=== PATIENT | female | born 1980 | race Caucasian/White ===

== ENCOUNTER 2016-10-28 09:43 | Inpatient (IN) | payer MEDICAID ==
[2016-10-28] VITALS (7 sets, daily range): BP systolic 100–130; BP diastolic 53–83; PULSE 66–126; RESP 18–20; TEMP 97.6–99; O2SAT 97–100
[~2016-10-28] VITALS: Ht 154.9 cm; Wt 59.3 kg
[~2016-10-28 09:43] MED LIST: BACT800T5 PO; FLUT1SPR9 EACH NARE; NAPR500 PO
--- NOTE | 2016-10-28 10:06 | PD ---
HPI Chief Complaint: Abdominal Pain Time Seen by Provider: 10:06 Travel History International Travel<30 days: No Contact w/Intl Traveler<30days: No Traveled to known affect area: No History of Present Illness HPI 36-year-old female came to the emergency room with history of abdominal pain, generalized body aches. Patient says that abdominal pain has been going on for past 2 weeks. In fact she was seen at [facility] emergency room about 3-4 days ago. She had blood test and CAT scan done there. She was discharged home with medications. She showed me the list of medications which included Zofran, Bentyl, clindamycin and tramadol. Patient says she finished all the medication but for past 3 days she started getting generalized body ache and today had a temperature 103.5. She put some cool washcloth before coming to the ER. She was afebrile in the emergency room but tachycardic. She said her pain is in both hips, in her "kidney areas"and headache. She has been coughing and patient is a smoker. [facility] Past Medical History Narrative Medical List of her past medical, surgical, social and family history was reviewed from the nursing note. Hx Anticoagulant Therapy: No Cancer: No Cardiovascular Problems: No Chemotherapy: No Cerebrovascular Accident: No Diabetes: No Diminished Hearing: No Glaucoma: No Hepatitis: No Hiatal Hernia: No Hypertension: No Respiratory: No Thyroid Disease: No ?: Unknown LMP: ABOUT 3 WEEKS AGO : 4 Para: 2 Miscarriage: 1 : 0 Tubal Ligation: Yes Past Surgical History Abdominal Surgery: No Cardiac Surgery: No Ear Surgery: No Endocrine Surgery: No Eye Surgery: No Genitourinary Surgery: No Gynecologic Surgery: Yes (COLPOSCOPY) Neurologic Surgery: No Oral Surgery: Yes (WISDOM TEETH) Pacemaker: No Thoracic Surgery: No Other Surgery: Yes Social History Alcohol Use: Yes (OCCASIONAL) Tobacco Use: Yes (1 PPD) Substance Use: No Allergies-Medications (Allergen,Severity, Reaction): Coded Allergies: Amoxicillin (Verified Allergy, Severe, HIVES, 10/28/16) Codeine (Verified Allergy, Severe, HIVES, 10/28/16) Penicillin (Verified Allergy, Severe, HIVES, 10/28/16) Comments List of her allergies reviewed from the nursing note. Reported Meds & Prescriptions Reported Meds & Active Scripts Active Narrative Medication List of her home medications reviewed from the nursing note. Review of Systems Except as stated in HPI: all other systems reviewed are Neg Physical Exam Narrative GENERAL: Awake, alert, anxious, moderate distress SKIN: Focused skin assessment warm/dry. HEAD: Atraumatic. Normocephalic. EYES: Pupils equal and round. No scleral icterus. No injection or drainage. ENT: No nasal bleeding or discharge. Dry mucous membrane, angular cheilosis NECK: Trachea midline. No JVD. CARDIOVASCULAR: Regular rate and rhythm. Tachycardia. No murmur appreciated. RESPIRATORY: No accessory muscle use. Fine crackles in the left base GASTROINTESTINAL: Abdomen soft, non-tender, nondistended. Hepatic and splenic margins not palpable. MUSCULOSKELETAL: No obvious deformities. No clubbing. No cyanosis. No edema. NEUROLOGICAL: Awake and alert. No obvious cranial nerve deficits. Motor grossly within normal limits. Normal speech. PSYCHIATRIC: Appropriate mood and affect; insight and judgment normal. Data Data Last Documented VS Vital Signs Date Time Temp Pulse Resp B/P Pulse Ox O2 Delivery O2 Flow Rate FiO2 10/28/16 11:06 18 100 Room Air 10/28/16 10:21 98 113/61 10/28/16 09:44 99.0 Orders Complete Blood Count With Diff (10/28/16 10:35) Comprehensive Metabolic Panel (10/28/16 10:35) Lipase (10/28/16 10:35) Urinalysis - C+S If Indicated (10/28/16 10:35) Iv Access Insert/Monitor (10/28/16 10:35) Ecg Monitoring (10/28/16 10:35) Oximetry (10/28/16 10:35) Sodium Chlor 0.9% 1000 Ml Inj (Ns 1000 M (10/28/16 10:35) Sodium Chloride 0.9% Flush (Ns Flush) (10/28/16 10:45) Influenzae A/B Antigen (10/28/16 10:35) Ondansetron Inj (Zofran Inj) (10/28/16 10:45) Ed Urine Pregnancytest Poc (10/28/16 10:35) Chest, Single Ap (10/28/16 ) Ketorolac Inj (Toradol Inj) (10/28/16 11:15) Urine Culture (10/28/16 10:50) Lactic Acid (10/28/16 11:32) Blood Culture (10/28/16 11:32) Ceftriaxone Inj (Rocephin Inj) (10/28/16 11:45) Sodium Chlor 0.9% 1000 Ml Inj (Ns 1000 M (10/28/16 11:45) Admit Order (Ed Use Only) (10/28/16 11:50) Labs Laboratory Tests Test 10/28/16 10/28/16 10:50 11:49 Sodium Level 134 MEQ/L Potassium Level 4.2 MEQ/L Chloride Level 106 MEQ/L Carbon Dioxide Level 20.7 MEQ/L Anion Gap 7 MEQ/L Blood Urea Nitrogen 21 MG/DL Creatinine 1.43 MG/DL Estimat Glomerular Filtration 41 ML/MIN Rate Random Glucose 93 MG/DL Calcium Level 9.6 MG/DL Total Bilirubin 1.0 MG/DL Aspartate Amino Transf 25 U/L (AST/SGOT) Alanine Aminotransferase 20 U/L (ALT/SGPT) Alkaline Phosphatase 147 U/L Troponin I LESS THAN 0.02 NG/ML Total Protein 7.1 GM/DL Albumin 3.0 GM/DL Lipase 84 U/L White Blood Count 18.8 TH/MM3 Red Blood Count 3.83 MIL/MM3 Hemoglobin 12.3 GM/DL Hematocrit 37.3 % Mean Corpuscular Volume 97.3 FL Mean Corpuscular Hemoglobin 32.1 PG Mean Corpuscular Hemoglobin 33.0 % Concent Red Cell Distribution Width 12.9 % Platelet Count 123 TH/MM3 Mean Platelet Volume 9.9 FL Neutrophils (%) (Auto) 91.8 % Lymphocytes (%) (Auto) 2.4 % Monocytes (%) (Auto) 5.3 % Eosinophils (%) (Auto) 0.4 % Basophils (%) (Auto) 0.1 % Neutrophils # (Auto) 17.3 TH/MM3 Lymphocytes # (Auto) 0.5 TH/MM3 Monocytes # (Auto) 1.0 TH/MM3 Eosinophils # (Auto) 0.1 TH/MM3 Basophils # (Auto) 0.0 TH/MM3 CBC Comment DIFF FINAL Differential Comment Urine Color YELLOW Urine Turbidity HAZY Urine pH 7.0 Urine Specific [place] 1.014 Urine Protein 100 mg/dL Urine Glucose (UA) NEG mg/dL Urine Ketones NEG mg/dL Urine Occult Blood MOD Urine Nitrite POS Urine Bilirubin NEG Urine Urobilinogen LESS THAN 2.0 MG/DL Urine Leukocyte Esterase LARGE Urine RBC 7 /hpf Urine WBC /hpf Urine WBC Clumps FEW Urine Squamous Epithelial 7 /hpf Cells Urine Transitional Epithelial <1 /hpf Cells Urine Amorphous Sediment RARE Urine Bacteria RARE /hpf Urine Mucus FEW /lpf Microscopic Urinalysis Comment CULTURE INDICATED Lactic Acid Level 0.5 mmol/L MDM Medical Decision Making Medical Screen Exam Complete: Yes Emergency Medical Condition: Yes Medical Record Reviewed: Yes Differential Diagnosis UTI, influenza, viral illness, dehydration, left right abnormality Narrative Course 11:02 AM awaiting for the blood test, chest x-ray and urine analysis. Ordered influenza and ordered IV hydration for bolus. 11:33 AM her blood test result came back and patient has significant leukocytosis with a left shift. UA is grossly positive for UTI. At this point given her symptoms and complain the diagnosis would be pyelonephritis. I've ordered another liter of IV fluid and IV Rocephin. I would like to admit the patient. Awaiting for the chemistry. I have added lactic acid and blood culture as well Procedures EKG Prior to Arrival: No Diagnosis Primary Impression: Pyelonephritis Additional Impression: Dehydration Admitting Information Admitting Physician Requests: Admit Scripts Ciprofloxacin 500 Mg [id number] Mg PO BID #20 TAB Ref 0 Prov:Jerome Patrick MD R1 10/31/16 [id number] 50-325-40 Mg Tab1 Tab PO Q8H PRN (HEADACHE) # 21 TAB Prov:Jerome Patrick MD R1 10/31/16 Soren Alvarado MD Oct 28, 2016 10:06
[2016-10-28] MEDS ORDERED: SODIUM CHLOR 0.9% 1000 ML INJ 1,000 ML IV SCH (10:35)
[2016-10-28] MEDS ORDERED: ONDANSETRON HCL 4 MG/2 ML VIAL IV PUSH ONE (10:45)
[2016-10-28] MEDS ORDERED: SODIUM CHLORIDE 0.9% FLUSH 10 ML FLUSH IV FLUSH PRN ×2 (10:45→14:15)
[2016-10-28 11:14] LABS: AUTOMATED NEUTROPHIL # 17.3 TH/MM3 (1.8-7.7); BASOPHIL % 0.1 % (0.0-2.0); EOSINOPHIL # 0.1 TH/MM3 (0-0.4); EOSINOPHIL % 0.4 % (0.0-4.0); HEMATOCRIT 37.3 % (35.0-46.0); HEMO FLAGS DIFF FINAL; LYMPH % 2.4 % (9.0-44.0); LYMPHOCYTE # 0.5 TH/MM3 (1.0-4.8); MEAN CELL VOLUME 97.3 FL (80.0-100.0); MEAN CORPUSCULAR HEMOGLOBIN 32.1 PG (27.0-34.0); MONO % 5.3 % (0.0-8.0); NEUT % 91.8 % (16.0-70.0); PLATELET COUNT 123 TH/MM3 (150-450); RED BLOOD COUNT 3.83 MIL/MM3 (4.00-5.30); RED CELL DISTRIBUTION WIDTH 12.9 % (11.6-17.2); WHITE BLOOD COUNT 18.8 TH/MM3 (4.0-11.0)
[2016-10-28] MEDS ORDERED: KETOROLAC TROMETHAMINE 30 MG/ML (IVP) VIAL IV PUSH ONE (11:15)
--- NOTE | 2016-10-28 11:24 | RADRPT ---
EXAM DATE/TIME: 10/28/2016 10:41 [facility] COMPARISON: No previous studies available for comparison. INDICATIONS : Fever, vomiting, cough, and body aches for three days. MEDICAL HISTORY : None. SURGICAL HISTORY : Tubal ligation. ENCOUNTER: Initial ACUITY: 3 days PAIN SCORE: 4/10 LOCATION: Chest. FINDINGS: A single view of the chest demonstrates the lungs to be symmetrically aerated without evidence of mas s, infiltrate or effusion. The cardiomediastinal contours are unremarkable. Osseous structures are intact. CONCLUSION: No acute disease. Dyan Bueno MD on October 28, 2016 at 11:21 Board Certified Radiologist. This report was verified electronically.
[2016-10-28 11:29] LABS: BACTERIA, URINE RARE /hpf; BLOOD, URINE MOD (NEG); GLUCOSE,URINE NEG (NEG); KETONE, URINE NEG (NEG); MUCUS URINE FEW /lpf (OCC); NITRITE,URINE POS (NEG); SQUAMOUS EPITHELIAL CELL URINE 7 /hpf (0-5); TRANSITIONAL EPI CELLS, URINE <1 /hpf; URINE COLOR YELLOW (YELLW/STRAW)
[2016-10-28 11:30] LABS: COMMENT (UR) CULTURE INDICATED; CULTURE IF INDICATED CULTURE INDICATED
[2016-10-28 11:34] LABS: ANION GAP 7 MEQ/L (5-15); AST (GOT) 25 U/L (15-37); BICARBONATE 20.7 MEQ/L (21.0-32.0); BLOOD UREA NITROGEN 21 MG/DL (7-18); CHLORIDE 106 MEQ/L (98-107); GLOMERULAR FILTRATION RATE 41 ML/MIN (>89); POTASSIUM 4.2 MEQ/L (3.5-5.1); SODIUM (NA) 134 MEQ/L (136-145)
[2016-10-28 11:37] LABS: ALKALINE PHOSPHATASE 147 U/L (45-117); ALT (GPT) 20 U/L (10-53)
[2016-10-28] MEDS ORDERED: SODIUM CHLOR 0.9% 1000 ML INJ 1,000 ML IV ONE (11:45)
[2016-10-28] MEDS ORDERED: cefTRIAXone INJ 1,000 MG in SODIUM CHLORIDE 0.9% INJ 100 ML IV ONE (11:45)
--- NOTE | 2016-10-28 12:00 | HHI.HP ---
HPI Service Family Medicine Primary Care Physician Unknown Admission Diagnosis pyelonephritis, dehydration Diagnoses: International Travel<30 Days: No Contact w/Intl Traveler<30days: No Known Affected Area: No History of Present Illness Mrs. Larson is a 36-year-old female with no significant past medical history presents to the ED with nausea, vomiting, fever, and dysuria. She states that over the past 2 weeks she has had ABD pain and chills without fever, NVD, or dysuria. She was evaluated at [facility] days ago. She reports that she had blood testing and a CT scan done that were both negative per patient. She was discharged home with Zofran, Bentyl, Clindamycin, and Tramadol. She completed these medications as prescribed, but she reports no improvement. For the last 3 days she started experiencing nausea with body aches. Over the last 24 hours she has had dysuria with a strong urine smell and a fever of 103.1 orally this morning. She had one episode of non-bilious, non- bloody vomiting this morning. Her ABD pain has not subsided and is now localized to the lower back, especially on the L side. She scores the pain a 10/ 10 with a throbbing like quality. Nothing has improved her pain including using Tramadol and Tylenol as prescribed. She reports some chest pain over this time frame, but has a cough at baseline per patient likely related to her smoking history. (Jerome Patrick MD R1) Review of Systems Constitutional: COMPLAINS OF: Fever, Chills Endocrine: COMPLAINS OF: Polyuria Eyes: DENIES: Blurred vision Ears, nose, mouth, throat: COMPLAINS OF: Throat pain (Mild), DENIES: Running Nose Respiratory: COMPLAINS OF: Cough, DENIES: Shortness of breath Cardiovascular: COMPLAINS OF: Chest pain (Over last 24 hours), DENIES: Palpitations Gastrointestinal: COMPLAINS OF: Nausea, Vomiting, DENIES: Diarrhea Genitourinary: COMPLAINS OF: Dysuria Musculoskeletal: COMPLAINS OF: Back pain Integumentary: DENIES: Rash Hematologic/lymphatic: DENIES: Lymphadenopathy Immunologic/allergic: DENIES: Urticaria Neurologic: COMPLAINS OF: Headache Psychiatric: DENIES: Mood changes (Jerome Patrick MD R1) Past Family Social History Past Medical History Denies significant PMHx OBGYN: -1 miscarriage -Tubal ligation Past Surgical History Colposcopy [place] teeth extraction Tubal ligation (Jerome Patrick MD R1) Allergies: Coded Allergies: Amoxicillin (Verified Allergy, Severe, HIVES, 10/28/16) Codeine (Verified Allergy, Severe, HIVES, 10/28/16) Penicillin (Verified Allergy, Severe, HIVES, 10/28/16) Family History Denies FMHx Social History Alcohol - Occasional, weekends a couple of drinks Smoking - 1ppd for 22yr Illicit - Denies Lives at home in [place] with her 3 children. (Jerome Patrick MD R1) Physical Exam Vital Signs Vital Signs Date Time Temp Pulse Resp B/P Pulse Ox O2 Delivery O2 Flow Rate FiO2 10/28/16 11:06 18 100 Room Air 10/28/16 10:21 98 18 113/61 99 Room Air 10/28/16 10:21 18 10/28/16 09:44 99.0 126 20 130/74 99 Room Air Physical Exam GENERAL: Well-nourished, well-developed patient 36 y/o lying in bed in mild distress from pain. SKIN: Warm and dry. No rash. HEENT: Atraumatic, normocephalic with EOMI. PERRLA. Oropharynx clear with no exudates or erythema. No rhinorrhea. MMM with uvula midline. No palpable LAD. No meningeal signs. CARDIOVASCULAR: Regular rate and rhythm without obvious murmurs, gallops, or rubs. RESPIRATORY: Clear to auscultation BL with no CRW. No increased work of breathing. GASTROINTESTINAL: Abdomen soft, nondistended with +BS. No masses appreciated. Patient mildly tender to moderate palpation. No rebound tenderness. Mild tenderness at McBurney's point. MUSCULOSKELETAL: No cyanosis or edema. Strength grossly WNL. BACK: Mild CVA tenderness BL, worsened on the L side. NEURO/PSYCH: Afocal. Awake, alert, and oriented x3. No gross abnormalities. Laboratory Laboratory Tests Test 10/28/16 10:50 White Blood Count 18.8 Red Blood Count 3.83 Hemoglobin 12.3 Hematocrit 37.3 Mean Corpuscular Volume 97.3 Mean Corpuscular Hemoglobin 32.1 Mean Corpuscular Hemoglobin 33.0 Concent Red Cell Distribution Width 12.9 Platelet Count 123 Mean Platelet Volume 9.9 Neutrophils (%) (Auto) 91.8 Lymphocytes (%) (Auto) 2.4 Monocytes (%) (Auto) 5.3 Eosinophils (%) (Auto) 0.4 Basophils (%) (Auto) 0.1 Neutrophils # (Auto) 17.3 Lymphocytes # (Auto) 0.5 Monocytes # (Auto) 1.0 Eosinophils # (Auto) 0.1 Basophils # (Auto) 0.0 CBC Comment DIFF FINAL Differential Comment Urine Color YELLOW Urine Turbidity HAZY Urine pH 7.0 Urine Specific [place] 1.014 Urine Protein 100 Urine Glucose (UA) NEG Urine Ketones NEG Urine Occult Blood MOD Urine Nitrite POS Urine Bilirubin NEG Urine Urobilinogen LESS THAN 2.0 Urine Leukocyte Esterase LARGE Urine RBC 7 Urine WBC Urine WBC Clumps FEW Urine Squamous Epithelial 7 Cells Urine Transitional Epithelial <1 Cells Urine Amorphous Sediment RARE Urine Bacteria RARE Urine Mucus FEW Microscopic Urinalysis Comment CULTURE INDICATED Sodium Level 134 Potassium Level 4.2 Chloride Level 106 Carbon Dioxide Level 20.7 Anion Gap 7 Blood Urea Nitrogen 21 Creatinine 1.43 Estimat Glomerular Filtration 41 Rate Random Glucose 93 Calcium Level 9.6 Total Bilirubin 1.0 Aspartate Amino Transf 25 (AST/SGOT) Alanine Aminotransferase 20 (ALT/SGPT) Alkaline Phosphatase 147 Total Protein 7.1 Albumin 3.0 Lipase 84 Date/Time Procedure Status Source Growth 10/28/16 10:52 Influenza Types A,B Antigen (EFRAIN) - Final Complete Nasal Aspirate NEGATIVE FOR FLU A AND B ANTIGEN.... 10/28/16 10:50 Urine Culture Received Urine Clean Catch Pending (Jerome Patrick MD R1) Result Diagram: 10/28/16 1050 10/28/16 1050 Imaging Last 72 hours Impressions Chest X-Ray 10/28/16 0000 Signed Impressions: Service Date/Time: Friday, October 28, 2016 10:41 - CONCLUSION: No acute disease. Dyan Bueno MD (Jerome Patrick MD R1) Assessment and Plan Assessment and Plan Mrs. Larson is a 36-year-old female with no significant past medical history presents to the ED with nausea, vomiting, fever, and dysuria secondary to pyelonephritis. She will be admitted for IV ABX. Code Status FULL Discussed Condition With Dr. Alvarado, ER Physician Dr. Yesy Ingram (Jerome Patrick MD R1) Attending Attestation Patient seen and examined. Case reviewed and discussed with the resident team. Agree with plan of care as discussed with me and documented in the resident note. pt seen in her room on admission (Zeenat Borja MD) Problem List: (1) Pyelonephritis Status: Acute Plan: Patient presenting with 3 days of fever up to 103, CVA tenderness, dysuria, foul-smelling urine, and nausea with vomiting secondary to pyelonephritis. She will be admitted for IV antibiotics, hydration, and pain control. Prior CT at [facility] negative per patient. CBC: WBC 18.8 with 91.8% neutrophils, H/H4.3/37.3, platelets 123 CMP: Sodium 134, BUN 21, creatinine 1.43, alkaline phosphatase 147 UA: Hazy, 100 protein, moderate occult blood, positive nitrites, large leukocyte esterase, few white blood cell clumps, rare bacteria Blood cultures 2: Pending Urine culture: Pending Imaging: Renal ultrasound: Pending Medications: Rocephin 1 g daily Toradol 30 mg every 6 hours when necessary for pain (Stop Date 11/04) Morphine 2 mg IV given once Normal saline at 100 mL per hour (2) Dehydration Status: Acute Plan: Please see plan as above (3) Nutrition, metabolism, and development symptoms Status: Acute Plan: Fluids: Normal saline at 100 mL per hour Diet: Regular as tolerated Electrolytes: Sodium 134, continue to monitor DVT prophylaxis: Heparin 5000 units twice a day Prophylaxis: Zofran 4 mg IV every 6 hours when necessary for nausea or vomiting , Tylenol 650 mg every 6 hours when necessary for fever, calcium carbonate 500 mg every 2 hours when necessary for reflux, hydroxyzine 25 mg daily at bedtime when necessary for insomnia, DuoNeb's every 6 hours when necessary for shortness of breath or wheezing (Jerome Patrick MD R1) Physician Certification 2 Midnight Certification Type: Admission for Inpatient Services Order for Inpatient Services The services are ordered in accordance with Medicare regulations or non- Medicare payer requirements, as applicable. In the case of services not specified as inpatient-only, they are appropriately provided as inpatient services in accordance with the 2-midnight benchmark. Estimated LOS (days): 3 3 days is the estimated time the patient will need to remain in the hospital, assuming treatment plan goals are met and no additional complications. Post-Hospital Plan: Home (Jerome Patrick MD R1) Jerome Patrick MD R1 Oct 28, 2016 12:00 Zeenat Borja MD Oct 29, 2016 15:00
[2016-10-28] MEDS ORDERED: ACETAMINOPHEN 325 MG TAB PO ONE (12:15)
[2016-10-28] MEDS: SODIUM CHLOR 0.9% 1000 ML INJ 1,000 ML IV SCH ×2 (14:09→22:45)
[2016-10-28] MEDS ORDERED: ONDANSETRON HCL 4 MG/2 ML VIAL IV PRN (14:15)
[2016-10-28] MEDS ORDERED: ACETAMINOPHEN 325 MG TAB PO PRN (14:15)
[2016-10-28] MEDS: SODIUM CHLORIDE 0.9% FLUSH 10 ML FLUSH IV FLUSH SCH ×2 (15:23→20:00)
[2016-10-28] MEDS ORDERED: MORPHINE SULFATE 4 MG/ML INJ IV PUSH ONE (15:30)
[2016-10-28] MEDS: HEPARIN SODIUM - SQ 10,000 UNITS/ML VIAL SQ SCH ×2 (15:40→22:45)
[2016-10-28] MEDS: CALCIUM CARBONATE 500 MG CHEWABLE TAB CHEW PRN (18:41)
[2016-10-28] MEDS: KETOROLAC TROMETHAMINE 30 MG/ML (IVP) VIAL IVP PRN (18:41)
--- NOTE | 2016-10-28 19:27 | RADRPT ---
EXAM DATE/TIME: 10/28/2016 18:05 [facility] COMPARISON: No previous studies available for comparison. INDICATIONS : Flank pain. MEDICAL HISTORY : . Migraines. Current urinary tract infection. SURGICAL HISTORY : Tubal ligation. Colposcopy. ENCOUNTER: Initial ACUITY: 2 weeks PAIN SCORE: 9/10 LOCATION: Bilateral flank MEASUREMENTS: RIGHT KIDNEY: 9.9 x 5.7 x 4.9 cm LEFT KIDNEY: 13.2 x 5.4 x 5.4 cm FINDINGS: RIGHT KIDNEY: Renal cortex is normal in thickness and echotexture. No hydronephrosis, stone, or mass. LEFT KIDNEY: Renal cortex is normal in thickness and echotexture. No hydronephrosis, stone, or mass. BLADDER: Within normal limits given the degree of distension. CONCLUSION: No evidence of hydronephrosis or definite renal stones. Adair Augustin MD on October 28, 2016 at 19:23 Board Certified Radiologist. This report was verified electronically.
[2016-10-28] MEDS ORDERED: RESP: ALBUTEROL 2.5 MG/IPRATROPIUM 0.5 MG NEB (PRN) NEB (19:30)
[2016-10-28] MEDS: hydrOXYzine HCL 25 MG TAB PO PRN (22:45)
[2016-10-29] VITALS: BP 117/69; PULSE 86; RESP 20; TEMP 100; O2SAT 98
[2016-10-29] MEDS: KETOROLAC TROMETHAMINE 30 MG/ML (IVP) VIAL IVP PRN ×2 (00:12→08:33)
[2016-10-29 04:00] VITALS: TEMP 96.7
[2016-10-29 04:54] LABS: AUTOMATED NEUTROPHIL # 6.5 TH/MM3 (1.8-7.7); BASOPHIL % 0.2 % (0.0-2.0); EOSINOPHIL # 0.2 TH/MM3 (0-0.4); EOSINOPHIL % 1.9 % (0.0-4.0); HEMATOCRIT 31.7 % (35.0-46.0); HEMO FLAGS DIFF FINAL; LYMPH % 14.7 % (9.0-44.0); LYMPHOCYTE # 1.3 TH/MM3 (1.0-4.8); MEAN CELL VOLUME 98.4 FL (80.0-100.0); MEAN CORPUSCULAR HEMOGLOBIN 32.3 PG (27.0-34.0); MEAN CORPUSCULAR HGB CONC 32.8 % (32.0-36.0); MONO % 9.5 % (0.0-8.0); NEUT % 73.7 % (16.0-70.0); PLATELET COUNT 100 TH/MM3 (150-450); RED BLOOD COUNT 3.22 MIL/MM3 (4.00-5.30); RED CELL DISTRIBUTION WIDTH 13.2 % (11.6-17.2); WHITE BLOOD COUNT 8.9 TH/MM3 (4.0-11.0)
[2016-10-29 05:14] LABS: POTASSIUM 4.6 MEQ/L (3.5-5.1)
[2016-10-29 08:00] VITALS: BP 135/88; PULSE 71; RESP 18; TEMP 98; O2SAT 100
[2016-10-29] MEDS: SODIUM CHLORIDE 0.9% FLUSH 10 ML FLUSH IV FLUSH SCH ×2 (08:31→21:06)
[2016-10-29] MEDS: SODIUM CHLOR 0.9% 1000 ML INJ 1,000 ML IV SCH ×2 (08:32→21:07)
--- NOTE | 2016-10-29 10:27 | EKG ---
Date Performed: 10/28/2016 Time Performed: 16:01:42 PTAGE: 36 years EKG: Sinus rhythm NORMAL ECG NO PREVIOUS TRACING DOCTOR: Natividad Jessica Interpretating Date/Time 10/29/2016 10:25:19
--- NOTE | 2016-10-29 10:49 | HHI.HP ---
[facility] Service Family Medicine Primary Care Physician Unknown Admission Diagnosis pyelonephritis, dehydration Diagnoses: (1) Pyelonephritis Diagnosis: Principal (2) Dehydration Diagnosis: Principal (3) Nutrition, metabolism, and development symptoms Diagnosis: Principal International Travel<30 Days: No Contact w/Intl Traveler<30days: No Known Affected Area: No History of Present Illness Mrs. Larson is a 36-year-old female with no significant past medical history presented to the ED with nausea, vomiting, fever, and dysuria. She states that over the past 2 weeks she has had ABD pain and chills without fever, NVD, or dysuria. She was evaluated at [facility] 4 days prior to admission. She reports that she had blood testing and a CT scan done that were both negative per patient. She was discharged home with Zofran, Bentyl, Clindamycin, and Tramadol. She completed these medications as prescribed, but she reports no improvement. For the last 3 days she started experiencing nausea with body aches. Over the last 24 hours she has had dysuria with a strong urine smell and a fever of 103.1 orally. She had one episode of non-bilious, non- bloody vomiting this morning. Her ABD pain had not subsided and is now localized to the lower back, especially on the L side. She scores the pain a 10/ 10 with a throbbing like quality. Nothing has improved her pain including using Tramadol and Tylenol as prescribed. She reports some chest pain over this time frame, but has a cough at baseline per patient likely related to her smoking history. She also reported problems with poor dentition and needing pain meds and antibiotics for this. She states she had dental work on Sunday and has some mild pain in her right upper jaw from that. She also complains mainly about headache this am. She states she never normally gets headaches but she couldn't sleep well for 5 nights and states her sinuses are congested. Her headache is right frontal and not accompanied by nausea or vomiting. She denies a history of visual changes which sometimes can go along with migraine. However, she reports that her child and mother both have migraines. She did not complain of any neurologic changes or focal sxs. A CT of the head can be considered but her renal fxn is not perfect now so would not want to order a test with contrast at this time. Review of Systems Other Constitutional: COMPLAINS OF: Fever, Chills Endocrine: COMPLAINS OF: Polyuria Eyes: DENIES: Blurred vision Ears, nose, mouth, throat: COMPLAINS OF: Throat pain (Mild), DENIES: Running Nose Respiratory: COMPLAINS OF: Cough, DENIES: Shortness of breath Cardiovascular: COMPLAINS OF: Chest pain (Over last 24 hours), DENIES: Palpitations Gastrointestinal: COMPLAINS OF: Nausea, Vomiting, DENIES: Diarrhea Genitourinary: COMPLAINS OF: Dysuria Musculoskeletal: COMPLAINS OF: Back pain Integumentary: DENIES: Rash Hematologic/lymphatic: DENIES: Lymphadenopathy Immunologic/allergic: DENIES: Urticaria Neurologic: COMPLAINS OF: Headache Psychiatric: DENIES: Mood changes ( Past Family Social History Past Medical History Denies significant PMHx recent dental problems with consumption of motrin on a regular basis and po narcotics as well as recent antibiotics OBGYN: -1 miscarriage -Tubal ligation Past Surgical History Colposcopy [place] teeth extraction Tubal ligation Allergies: Coded Allergies: Amoxicillin (Verified Allergy, Severe, HIVES, 10/28/16) Codeine (Verified Allergy, Severe, HIVES, 10/28/16) Penicillin (Verified Allergy, Severe, HIVES, 10/28/16) Family History Denies FMHx Social History Alcohol - Occasional, weekends a couple of drinks Smoking - 1ppd for 22yr Illicit - Denies Lives at home in [place] with her 3 children. Physical Exam Vital Signs Vital Signs Date Time Temp Pulse Resp B/P Pulse Ox O2 Delivery O2 Flow Rate FiO2 10/29/16 08:00 98.0 71 18 135/88 100 10/29/16 04:00 96.7 10/29/16 00:00 100.0 86 20 117/69 98 10/28/16 20:00 97.6 84 20 106/69 99 10/28/16 16:00 97.7 83 20 111/83 99 10/28/16 14:06 66 18 100/53 97 Room Air 10/28/16 12:29 82 18 103/65 98 Room Air 10/28/16 11:06 18 100 Room Air Physical Exam GENERAL: Well-nourished, well-developed patient 36 y/o lying in bed in mild distress from pain. SKIN: Warm and dry. No rash. HEENT: Atraumatic, normocephalic with EOMI. PERRLA. Oropharynx clear with no exudates or erythema. No rhinorrhea. MMM with uvula midline. No palpable LAD. No meningeal signs. CARDIOVASCULAR: Regular rate and rhythm without obvious murmurs, gallops, or rubs. RESPIRATORY: Clear to auscultation BL with no CRW. No increased work of breathing. GASTROINTESTINAL: Abdomen soft, nondistended with +BS. No masses appreciated. Patient mildly tender to moderate palpation. No rebound tenderness. Mild tenderness at McBurney's point on admission. MUSCULOSKELETAL: No cyanosis or edema. Strength grossly WNL. BACK: Mild CVA tenderness BL, worsened on the L side. NEURO/PSYCH: Afocal. Awake, alert, and oriented x3. No gross abnormalities. Laboratory Laboratory Tests Test 10/28/16 10/28/16 10/29/16 10:50 11:49 04:08 White Blood Count 18.8 8.9 Red Blood Count 3.83 3.22 Hemoglobin 12.3 10.4 Hematocrit 37.3 31.7 Mean Corpuscular Volume 97.3 98.4 Mean Corpuscular Hemoglobin 32.1 32.3 Mean Corpuscular Hemoglobin 33.0 32.8 Concent Red Cell Distribution Width 12.9 13.2 Platelet Count 123 100 Mean Platelet Volume 9.9 10.0 Neutrophils (%) (Auto) 91.8 73.7 Lymphocytes (%) (Auto) 2.4 14.7 Monocytes (%) (Auto) 5.3 9.5 Eosinophils (%) (Auto) 0.4 1.9 Basophils (%) (Auto) 0.1 0.2 Neutrophils # (Auto) 17.3 6.5 Lymphocytes # (Auto) 0.5 1.3 Monocytes # (Auto) 1.0 0.8 Eosinophils # (Auto) 0.1 0.2 Basophils # (Auto) 0.0 0.0 CBC Comment DIFF FINAL DIFF FINAL Differential Comment Urine Color YELLOW Urine Turbidity HAZY Urine pH 7.0 Urine Specific [place] 1.014 Urine Protein 100 Urine Glucose (UA) NEG Urine Ketones NEG Urine Occult Blood MOD Urine Nitrite POS Urine Bilirubin NEG Urine Urobilinogen LESS THAN 2.0 Urine Leukocyte Esterase LARGE Urine RBC 7 Urine WBC Urine WBC Clumps FEW Urine Squamous Epithelial 7 Cells Urine Transitional Epithelial <1 Cells Urine Amorphous Sediment RARE Urine Bacteria RARE Urine Mucus FEW Microscopic Urinalysis Comment CULTURE INDICATED Sodium Level 134 140 Potassium Level 4.2 4.6 Chloride Level 106 109 Carbon Dioxide Level 20.7 25.0 Anion Gap 7 6 Blood Urea Nitrogen 21 21 Creatinine 1.43 1.50 Estimat Glomerular Filtration 41 39 Rate Random Glucose 93 121 Calcium Level 9.6 8.6 Total Bilirubin 1.0 Aspartate Amino Transf 25 (AST/SGOT) Alanine Aminotransferase 20 (ALT/SGPT) Alkaline Phosphatase 147 Troponin I LESS THAN 0.02 Total Protein 7.1 Albumin 3.0 Lipase 84 Lactic Acid Level 0.5 Date/Time Procedure Status Source Growth 10/28/16 11:55 Aerobic Blood Culture Worksheet Blood Peripheral Pending 10/28/16 11:55 Anaerobic Blood Culture Worksheet Blood Peripheral Pending 10/28/16 10:52 Influenza Types A,B Antigen (EFRAIN) - Final Complete Nasal Aspirate NEGATIVE FOR FLU A AND B ANTIGEN.... 10/28/16 10:50 Urine Culture Received Urine Clean Catch Pending Result Diagram: 10/29/16 0408 10/29/16 0408 Imaging Last 72 hours Impressions Chest X-Ray 10/28/16 0000 Signed Impressions: Service Date/Time: Friday, October 28, 2016 10:41 - CONCLUSION: No acute disease. Dyan Bueno MD Assessment and Plan Assessment and Plan Mrs. Larson is a 36-year-old female with no significant past medical history except some recent dental problems who presented to the ED with nausea, vomiting , fever, and dysuria secondary to pyelonephritis. She will be admitted for IV ABX. Problem List: (1) Pyelonephritis Status: Acute Plan: Patient presenting with 3 days of fever up to 103, CVA tenderness, dysuria, foul-smelling urine, and nausea with vomiting secondary to pyelonephritis. She will be admitted for IV antibiotics, hydration, and pain control. Prior CT at [facility] negative per patient. CBC: WBC 18.8 with 91.8% neutrophils, H/H4.3/37.3, platelets 123 CMP: Sodium 134, BUN 21, creatinine 1.43, alkaline phosphatase 147 UA: Hazy, 100 protein, moderate occult blood, positive nitrites, large leukocyte esterase, few white blood cell clumps, rare bacteria Blood cultures 2: Pending Urine culture: Pending Imaging: Renal ultrasound: done Medications: Rocephin 1 g daily Toradol 30 mg every 6 hours when necessary for pain, will stop with some increased creatinine over her baseline Morphine 2 mg IV given once Normal saline at 100 mL per hour (2) Dehydration Status: Acute Plan: Please see plan as above (3) Headache Status: Acute Plan: headache right sided frontal. no nausea or vomiting. throbbing at times and steady pain at times. FH of migraines and personal history denied by pt but written in her chart. One sided headaches are usually migraines. Pt states that morphine worked the best on her headache however will try Fiorinal and consider other meds as needed. Will hold on toradol as her renal fxn is not down to baseline so will hold NSAIDs. She was taking Motrin regularly at home and po narcotics per her prescription history. Consider CT head but do not want to expose her to dye right now. Also can consider sinusitis as she has had dental issues and pain so CT could include sinuses. Can consider non contrast CT head tomorrow but migraine is most likely problem (4) Nutrition, metabolism, and development symptoms Status: Acute Plan: Fluids: Normal saline at 100 mL per hour Diet: Regular as tolerated Electrolytes: Sodium 134, continue to monitor DVT prophylaxis: Heparin 5000 units twice a day Prophylaxis: Zofran 4 mg IV every 6 hours when necessary for nausea or vomiting , Tylenol 650 mg every 6 hours when necessary for fever, calcium carbonate 500 mg every 2 hours when necessary for reflux, hydroxyzine 25 mg daily at bedtime when necessary for insomnia, DuoNeb's every 6 hours when necessary for shortness of breath or wheezing Physician Certification 2 Midnight Certification Type: Admission for Inpatient Services Order for Inpatient Services The services are ordered in accordance with Medicare regulations or non- Medicare payer requirements, as applicable. In the case of services not specified as inpatient-only, they are appropriately provided as inpatient services in accordance with the 2-midnight benchmark. Estimated LOS (days): 3 3 days is the estimated time the patient will need to remain in the hospital, assuming treatment plan goals are met and no additional complications. Post-Hospital Plan: Home Problem Qualifiers (1) Headache: Qualified Code: R51 - Acute intractable headache, unspecified headache type Zeenat Borja MD Oct 29, 2016 10:49
[2016-10-29] MEDS: HEPARIN SODIUM - SQ 10,000 UNITS/ML VIAL SQ SCH ×2 (11:20→23:03)
[2016-10-29] MEDS: cefTRIAXone INJ 1,000 MG in SODIUM CHLORIDE 0.9% INJ 100 ML IV SCH (11:20)
[2016-10-29] MEDS: ACETAMINOPHEN/HYDROcodone 325 MG/5 MG TAB PO PRN ×3 (11:21→23:02)
[2016-10-29 12:00] VITALS: BP 114/86; PULSE 65; RESP 16; TEMP 97.5; O2SAT 100
[2016-10-29] MEDS: ACETAMIN 325 MG/BUTALBITAL 50 MG/CAFFEINE 40 MG TAB PO PRN (15:58)
[2016-10-29 16:00] VITALS: BP 120/80; PULSE 68; RESP 18; TEMP 98.1; O2SAT 100
[2016-10-29] MEDS: CALCIUM CARBONATE 500 MG CHEWABLE TAB CHEW PRN (19:01)
[2016-10-29 20:00] VITALS: BP 129/79; PULSE 84; RESP 20; TEMP 100.5; O2SAT 99
[2016-10-30] VITALS: BP 116/80; PULSE 76; RESP 20; TEMP 98.8; O2SAT 98
[2016-10-30] MEDS: ACETAMIN 325 MG/BUTALBITAL 50 MG/CAFFEINE 40 MG TAB PO PRN ×3 (00:27→16:14)
[2016-10-30] MEDS: hydrOXYzine HCL 25 MG TAB PO PRN (03:24)
[2016-10-30] MEDS: ACETAMINOPHEN/HYDROcodone 325 MG/5 MG TAB PO PRN ×5 (03:25→20:18)
[2016-10-30 05:51] LABS: BASOPHIL % 0.5 % (0.0-2.0); EOSINOPHIL # 0.2 TH/MM3 (0-0.4); EOSINOPHIL % 3.6 % (0.0-4.0); HEMATOCRIT 31.9 % (35.0-46.0); HEMO FLAGS DIFF FINAL; LYMPH % 23.3 % (9.0-44.0); LYMPHOCYTE # 1.5 TH/MM3 (1.0-4.8); MEAN CELL VOLUME 98.4 FL (80.0-100.0); MEAN CORPUSCULAR HEMOGLOBIN 32.2 PG (27.0-34.0); MEAN CORPUSCULAR HGB CONC 32.7 % (32.0-36.0); MONO % 11.9 % (0.0-8.0); NEUT % 60.7 % (16.0-70.0); PLATELET COUNT 138 TH/MM3 (150-450); RED BLOOD COUNT 3.24 MIL/MM3 (4.00-5.30); RED CELL DISTRIBUTION WIDTH 13.2 % (11.6-17.2); WHITE BLOOD COUNT 6.6 TH/MM3 (4.0-11.0)
[2016-10-30 06:01] LABS: BICARBONATE 21.7 MEQ/L (21.0-32.0); POTASSIUM 4.4 MEQ/L (3.5-5.1)
[2016-10-30] MEDS: SODIUM CHLOR 0.9% 1000 ML INJ 1,000 ML IV SCH (06:09)
[2016-10-30 08:00] VITALS: BP 118/76; PULSE 70; RESP 14; TEMP 97.1; O2SAT 100
[2016-10-30] MEDS: SODIUM CHLORIDE 0.9% FLUSH 10 ML FLUSH IV FLUSH SCH ×2 (08:11→19:48)
--- NOTE | 2016-10-30 09:33 | HHI.FPPN ---
Subjective Remarks Pt seen and examined this morning. No cute events overnight. Pt with Tmax overnight of 100.5. Otherwise vitals have been stable. Pt reports feeling significantly improved. Headaches have decreased in frequency and severity. Abdominal pain and back pain is much better. She is having some abdominal cramping with she attributes to her menstrual period. Denies chest pain, shortness of breath, calf pain. (Evelina Ingram MD R2) Objective Vitals Vital Signs Date Time Temp Pulse Resp B/P Pulse Ox O2 Delivery O2 Flow Rate FiO2 10/30/16 08:00 97.1 70 14 118/76 100 10/30/16 00:00 98.8 76 20 116/80 98 10/29/16 20:00 100.5 84 20 129/79 99 10/29/16 16:00 98.1 68 18 120/80 100 10/29/16 12:00 97.5 65 16 114/86 100 I/O 10/29/16 10/29/16 10/29/16 10/30/16 10/30/16 10/30/16 07:00 15:00 23:00 07:00 15:00 23:00 Intake Total 480 ml 2730 ml 480 ml 1737 ml Output Total 1000 ml 800 ml 600 ml Balance -520 ml 2730 ml -320 ml 1137 ml Intake Oral 480 ml 480 ml 480 ml 480 ml IV Total 2250 ml 1257 ml Output Urine Total 1000 ml 800 ml 600 ml # Voids 3 # Bowel Movements 2 0 0 (Evelina Ingram MD R2) Result Diagram: 10/30/16 0435 10/30/16 0435 Objective Remarks GENERAL: Well-nourished, well-developed patient 36 y/o lying in bed in mild distress from pain. CARDIOVASCULAR: Regular rate and rhythm without obvious murmurs, gallops, or rubs. RESPIRATORY: Clear to auscultation BL with no CRW. No increased work of breathing. GASTROINTESTINAL: Abdomen soft, nondistended with +BS. No masses appreciated. Mild lower abdominal pain with palpation, improved. No rebound tenderness. MUSCULOSKELETAL: No cyanosis or edema. Strength grossly WNL. BACK: Mild CVA tenderness BL, worsened on the L side, improving. NEURO/PSYCH: Afocal. Awake, alert, and oriented x3. No gross abnormalities. ( Evelina Ingram MD R2) A/P Assessment and Plan Mrs. Larson is a 36-year-old female with no significant past medical history except some recent dental problems who presented to the ED with nausea, vomiting , fever, and dysuria secondary to pyelonephritis. She was admitted for treatment with IV antibiotics. Discharge Planning Anticipate discharge tomorrow (Evelina Ingram MD R2) Attending Attestation Patient seen and examined. Case reviewed and discussed with the resident team. Agree with plan of care as discussed with me and documented in the resident note. (Zeenat Borja MD) Problem List: (1) Pyelonephritis Status: Acute Plan: Patient presenting with 3 days of fever up to 103, CVA tenderness, dysuria, foul-smelling urine, and nausea with vomiting secondary to pyelonephritis. She will be admitted for IV antibiotics, hydration, and pain control. Prior CT at [facility] negative, per patient. On admission, UA with hazy appearance, 100 protein, moderate occult blood, positive nitrites, large leukocyte esterase, few white blood cell clumps, rare bacteria. WBC count of 18.8 with 91.8% neutrophils. CMP with Sodium 134, BUN 21, creatinine 1.43, alkaline phosphatase 147. WBC count down trending, 6.6 today Blood cultures significant for E coli in 1 of 4 vials. Sensitivity pending Urine culture: Pansensitive E coli Imaging: Renal ultrasound: No evidence of hydronephrosis of renal stones. Medications: Rocephin 1 g daily [place] Q4hrs prn pain 5-10 Zofran PRN (2) Dehydration Status: Acute Plan: Please see plan as above (3) Headache Status: Acute Plan: Pt reports right sided frontal headaches, not associated with nausea or vomiting, pain is steady and throbbing. Headaches have significantly improved with Fioricet. -FH of migraines and personal history denied by pt but written in her chart. One sided headaches are usually migraines. -Continue Fioricet Q8hts PRN headache (4) Nutrition, metabolism, and development symptoms Status: Acute Plan: Fluids: Pt tolerating PO, labs have signifcant imptoved, will hold fluids Diet: Regular as tolerated Electrolytes: WNL, continue to monitor DVT prophylaxis: Heparin 5000 units twice a day (Evelina Ingram MD R2) Problem Qualifiers (1) Headache: Qualified Code: R51 - Acute intractable headache, unspecified headache type Evelina Ingram MD R2 Oct 30, 2016 09:32 Zeenat Borja MD Nov 03, 2016 13:58 (1) Headache: Qualified Code: R51 - Acute intractable headache, unspecified headache type Evelina Ingram MD R2 Oct 30, 2016 09:32
[2016-10-30] MEDS: HEPARIN SODIUM - SQ 10,000 UNITS/ML VIAL SQ SCH (10:50)
[2016-10-30] MEDS: cefTRIAXone INJ 1,000 MG in SODIUM CHLORIDE 0.9% INJ 100 ML IV SCH (10:51)
[2016-10-30 12:00] VITALS: BP 124/81; PULSE 66; RESP 16; TEMP 95.6; O2SAT 99
[2016-10-30 16:00] VITALS: BP 115/71; PULSE 75; RESP 15; TEMP 97.4; O2SAT 98
[2016-10-30 20:00] VITALS: BP 131/80; PULSE 70; RESP 20; TEMP 97.7; O2SAT 100
[2016-10-31] VITALS: BP 142/80; PULSE 64; RESP 20; TEMP 97; O2SAT 100
[2016-10-31] MEDS: HEPARIN SODIUM - SQ 10,000 UNITS/ML VIAL SQ SCH (00:17)
[2016-10-31] MEDS: ACETAMIN 325 MG/BUTALBITAL 50 MG/CAFFEINE 40 MG TAB PO PRN ×2 (00:18→08:09)
[2016-10-31] MEDS: ACETAMINOPHEN/HYDROcodone 325 MG/5 MG TAB PO PRN ×3 (00:18→08:08)
[2016-10-31] MEDS: hydrOXYzine HCL 25 MG TAB PO PRN (00:23)
[2016-10-31 06:21] LABS: HEMATOCRIT 31.3 % (35.0-46.0); MEAN CELL VOLUME 97.3 FL (80.0-100.0); MEAN CORPUSCULAR HEMOGLOBIN 32.2 PG (27.0-34.0); MEAN CORPUSCULAR HGB CONC 33.1 % (32.0-36.0); PLATELET COUNT 183 TH/MM3 (150-450); RED BLOOD COUNT 3.21 MIL/MM3 (4.00-5.30); RED CELL DISTRIBUTION WIDTH 13.2 % (11.6-17.2); REVIEW FLAG FINAL; WHITE BLOOD COUNT 6.7 TH/MM3 (4.0-11.0)
[2016-10-31 06:40] LABS: BICARBONATE 24.2 MEQ/L (21.0-32.0); POTASSIUM 4.8 MEQ/L (3.5-5.1)
[2016-10-31 08:00] VITALS: BP 130/69; PULSE 69; RESP 18; TEMP 97.5; O2SAT 100
[2016-10-31] MEDS: SODIUM CHLORIDE 0.9% FLUSH 10 ML FLUSH IV FLUSH SCH (08:09)
[2016-10-31] MEDS ORDERED: BUTATAB6 PO (09:02)
[2016-10-31] MEDS: cefTRIAXone INJ 1,000 MG in SODIUM CHLORIDE 0.9% INJ 100 ML IV SCH (09:30)
[2016-10-31] MEDS ORDERED: CIPR500T2 PO (10:11)
--- NOTE | 2016-10-31 10:11 | HHI.DCPOC ---
Discharge Care Plan Diagnosis: (1) Pyelonephritis Goals to Promote Your Health * To prevent worsening of your condition and complications * To maintain your health at the optimal level Directions to Meet Your Goals Take your medications as prescribed Follow your dietary instruction Follow activity as directed Keep your appointments as scheduled Take your immunizations and boosters as scheduled If your symptoms worsen call your PCP, if no PCP go to Urgent Care Center or Emergency Room Smoking is Dangerous to Your Health. Avoid second hand smoke Call the 24-hour hour crisis hotline for domestic abuse at Jerome Patrick MD R1 Oct 31, 2016 10:11
--- NOTE | 2016-10-31 10:18 | HHI.FPPN ---
Subjective Remarks Patient seen and examined this morning. No acute events overnight with vital signs stable. Patient states that she is back to 100% and wishes to go home. She states that her urine has lost its foul smell and increased concentration. She has no complaints this morning and denies any fevers, chills, shortness of breath, chest pain, NVD, dysuria, CVA tenderness, or calf tenderness. (Jerome Patrick MD R1) Objective Vitals Vital Signs Date Time Temp Pulse Resp B/P Pulse Ox O2 Delivery O2 Flow Rate FiO2 10/31/16 08:00 97.5 69 18 130/69 100 10/31/16 05:06 20 10/31/16 01:18 18 10/31/16 00:00 97.0 64 20 142/80 100 10/30/16 20:00 97.7 70 20 131/80 100 10/30/16 16:00 97.4 75 15 115/71 98 10/30/16 12:00 95.6 66 16 124/81 99 I/O 10/30/16 10/30/16 10/30/16 10/31/16 10/31/16 10/31/16 07:00 15:00 23:00 07:00 15:00 23:00 Intake Total 1737 ml 600 ml 640 ml 720 ml Output Total 600 ml 1275 ml 850 ml 1200 ml Balance 1137 ml -675 ml -210 ml -480 ml Intake Oral 480 ml 600 ml 640 ml 720 ml IV Total 1257 ml Output Urine Total 600 ml 1275 ml 850 ml 1200 ml # Bowel Movements 0 1 0 0 (Jerome Patrick MD R1) Result Diagram: 10/31/1625 10/31/16524 Objective Remarks GENERAL: Well-nourished, well-developed patient 36 y/o standing up walking around the room in no acute distress. CARDIOVASCULAR: Regular rate and rhythm without obvious murmurs, gallops, or rubs. RESPIRATORY: Clear to auscultation BL with no CRW. No increased work of breathing. GASTROINTESTINAL: Abdomen soft, nondistended with +BS. No masses appreciated. Tenderness has resolved. No rebound tenderness. MUSCULOSKELETAL: No cyanosis or edema. Strength grossly WNL. BACK: CVA tenderness has resolved NEURO/PSYCH: Afocal. Awake, alert, and oriented x3. No gross abnormalities. ( Jerome Patrick MD R1) A/P Assessment and Plan Mrs. Larson is a 36-year-old female with no significant past medical history except some recent dental problems who presented to the ED with nausea, vomiting , fever, and dysuria secondary to pyelonephritis. She was admitted for treatment with IV antibiotics. Discharge Planning Patient will be discharged home today. DW: Dr. Borja (Jerome Patrick MD R1) Attending Attestation Patient seen and examined. Case reviewed and discussed with the resident team. Agree with plan of care as discussed with me and documented in the resident note. (Zeenat Borja MD) Problem List: (1) Pyelonephritis Status: Acute Plan: Patient presenting with 3 days of fever up to 103, CVA tenderness, dysuria, foul-smelling urine, and nausea with vomiting secondary to pyelonephritis. She will be admitted for IV antibiotics, hydration, and pain control. Prior CT at [facility] negative, per patient. On admission, UA with hazy appearance, 100 protein, moderate occult blood, positive nitrites, large leukocyte esterase, few white blood cell clumps, rare bacteria. WBC count of 18.8 with 91.8% neutrophils. CMP with Sodium 134, BUN 21, creatinine 1.43, alkaline phosphatase 147. WBC count down trending, 6.6 today Blood cultures significant for E coli in 1 of 4 vials. Sensitivity pending Urine culture: Pansensitive E coli Imaging: Renal ultrasound: No evidence of hydronephrosis of renal stones. Medications: Rocephin 1 g daily [place] Q4hrs prn pain 5-10 Zofran PRN Discharged home on Ciprofloxacin 500mg BID for 10 days (total antibiotics of 14 days) Repeat BMP in 1 week to evaluate kidney function Patient to follow-up with Dr. Coffman, PCP, in 2 weeks (2) Dehydration Status: Acute Plan: Please see plan as above (3) Headache Status: Acute Plan: Pt reports right sided frontal headaches, not associated with nausea or vomiting, pain is steady and throbbing. Headaches have significantly improved with Fioricet. -FH of migraines and personal history denied by pt but written in her chart. One sided headaches are usually migraines. -Continue Fioricet Q8hts PRN headache Patient discharged home on Fioricet 1 tab every 8 hours when necessary for headache, patient to follow-up with Dr. Duncan (4) Nutrition, metabolism, and development symptoms Status: Acute Plan: Fluids: Pt tolerating PO, labs have signifcant imptoved, will hold fluids Diet: Regular as tolerated Electrolytes: WNL, continue to monitor DVT prophylaxis: Heparin 5000 units twice a day (Jerome Patrick MD R1) Problem Qualifiers (1) Headache: Qualified Code: R51 - Acute intractable headache, unspecified headache type Jerome Patrick MD R1 Oct 31, 2016 10:18 Zeenat Borja MD Nov 03, 2016 13:59
--- NOTE | 2016-10-31 12:28 | HHI.DS ---
Discharge Summary Admission Date Oct 28, 2016 at 11:51 Discharge Date: Oct 31, 2016 Admitting Diagnosis pyelonephritis, dehydration (1) Pyelonephritis Plan: Patient presenting with 3 days of fever up to 103, CVA tenderness, dysuria, foul-smelling urine, and nausea with vomiting secondary to pyelonephritis. She will be admitted for IV antibiotics, hydration, and pain control. Prior CT at [facility] negative, per patient. On admission, UA with hazy appearance, 100 protein, moderate occult blood, positive nitrites, large leukocyte esterase, few white blood cell clumps, rare bacteria. WBC count of 18.8 with 91.8% neutrophils. CMP with Sodium 134, BUN 21, creatinine 1.43, alkaline phosphatase 147. WBC count down trending, 6.6 today Blood cultures significant for E coli in 1 of 4 vials. Sensitivity pending Urine culture: Pansensitive E coli Imaging: Renal ultrasound: No evidence of hydronephrosis of renal stones. Medications: Rocephin 1 g daily [place] Q4hrs prn pain 5-10 Zofran PRN Discharged home on Ciprofloxacin 500mg BID for 10 days (total antibiotics of 14 days) Repeat BMP in 1 week to evaluate kidney function Patient to follow-up with Dr. Coffman, PCP, in 2 weeks (2) Dehydration Diagnosis: Principal Plan: Please see plan as above (3) Headache Diagnosis: Principal Plan: Pt reports right sided frontal headaches, not associated with nausea or vomiting, pain is steady and throbbing. Headaches have significantly improved with Fioricet. -FH of migraines and personal history denied by pt but written in her chart. One sided headaches are usually migraines. -Continue Fioricet Q8hts PRN headache Patient discharged home on Fioricet 1 tab every 8 hours when necessary for headache, patient to follow-up with Dr. Duncan (4) Nutrition, metabolism, and development symptoms Diagnosis: Principal Plan: Fluids: Pt tolerating PO, labs have signifcant imptoved, will hold fluids Diet: Regular as tolerated Electrolytes: WNL, continue to monitor DVT prophylaxis: Heparin 5000 units twice a day Brief History Mrs. Larson is a 36-year-old female with no significant past medical history presented to the ED with nausea, vomiting, fever, and dysuria. She states that over the past 2 weeks she has had ABD pain and chills without fever, NVD, or dysuria. She was evaluated at [facility] 4 days prior to admission. She reports that she had blood testing and a CT scan done that were both negative per patient. She was discharged home with Zofran, Bentyl, Clindamycin, and Tramadol. She completed these medications as prescribed, but she reports no improvement. For the last 3 days she started experiencing nausea with body aches. Over the last 24 hours she has had dysuria with a strong urine smell and a fever of 103.1 orally. She had one episode of non-bilious, non- bloody vomiting this morning. Her ABD pain had not subsided and is now localized to the lower back, especially on the L side. She scores the pain a 10/ 10 with a throbbing like quality. Nothing has improved her pain including using Tramadol and Tylenol as prescribed. She reports some chest pain over this time frame, but has a cough at baseline per patient likely related to her smoking history. She also reported problems with poor dentition and needing pain meds and antibiotics for this. She states she had dental work on Sunday and has some mild pain in her right upper jaw from that. She also complains mainly about headache this am. She states she never normally gets headaches but she couldn't sleep well for 5 nights and states her sinuses are congested. Her headache is right frontal and not accompanied by nausea or vomiting. She denies a history of visual changes which sometimes can go along with migraine. However, she reports that her child and mother both have migraines. She did not complain of any neurologic changes or focal sxs. A CT of the head can be considered but her renal fxn is not perfect now so would not want to order a test with contrast at this time. CBC/BMP: 10/31/16 0525 10/31/16 0525 Significant Findings Laboratory Tests Test 10/29/16 10/30/16 10/31/16 04:08 04:35 05:25 Red Blood Count 3.22 MIL/MM3 3.24 MIL/MM3 3.21 MIL/MM3 (4.00-5.30) (4.00-5.30) (4.00-5.30) Hemoglobin 10.4 GM/DL 10.4 GM/DL 10.4 GM/DL (11.6-15.3) (11.6-15.3) (11.6-15.3) Hematocrit 31.7 % 31.9 % 31.3 % (35.0-46.0) (35.0-46.0) (35.0-46.0) Platelet Count 100 TH/MM3 138 TH/MM3 (150-450) (150-450) Neutrophils (%) (Auto) 73.7 % (16.0-70.0) Monocytes (%) (Auto) 9.5 % (0.0-8.0) 11.9 % (0.0-8.0) Chloride Level 109 MEQ/L 109 MEQ/L 109 MEQ/L (98-107) (98-107) (98-107) Blood Urea Nitrogen 21 MG/DL (7-18) Creatinine 1.50 MG/DL 1.22 MG/DL 1.23 MG/DL (0.50-1.00) (0.50-1.00) (0.50-1.00) Estimat Glomerular Filtration 39 ML/MIN (>89) 50 ML/MIN (>89) 49 ML/MIN (>89) Rate Random Glucose 121 MG/DL (74-106) PE at Discharge GENERAL: Well-nourished, well-developed patient 36 y/o standing up walking around the room in no acute distress. CARDIOVASCULAR: Regular rate and rhythm without obvious murmurs, gallops, or rubs. RESPIRATORY: Clear to auscultation BL with no CRW. No increased work of breathing. GASTROINTESTINAL: Abdomen soft, nondistended with +BS. No masses appreciated. Tenderness has resolved. No rebound tenderness. MUSCULOSKELETAL: No cyanosis or edema. Strength grossly WNL. BACK: CVA tenderness has resolved NEURO/PSYCH: Afocal. Awake, alert, and oriented x3. No gross abnormalities. Hospital Course Patient was admitted for pyelonephritis and dehydration. She was started on maintenance IV fluids and Rocephin for antibiotic coverage for 4 days. During her hospital course she continued to experience unilateral headaches consistent with possible migraines. She was started on Fioricet which seemed to alleviate her pain. Otherwise her hospital course was uneventful. Urine culture and 1 blood culture were positive for pansensitive Escherichia coli. She was discharged on 10/31/16 with prescription for Fioricet and ciprofloxacin to be taken for 10 days (a total of 14 days of antibiotic coverage). She was instructed to have follow-up BMP in 1 week, and then follow-up with her PCP, Dr. Duncan, in 2 weeks to discuss those results or any issues from discharge. Pt Condition on Discharge: Fair Discharge Disposition: Discharge Home Discharge Instructions DIET: Follow Instructions for: As Tolerated, No Restrictions Activities you can perform: Regular-No Restrictions Follow up Referrals: PCP Follow-up - 2 Weeks New Orders: BASIC METABOLIC PROF - 1 Week New Medications: Ciprofloxacin (Ciprofloxacin) 500 Mg Tab 500 MG PO BID Infection #20 Ref 0 TAB Zcbxbbuksw-Kcxettguwrbxq-Powwtckr (Zlmreifkvg-Lqmoywxxjwcvu-Lkltryum) 50-325-40 Mg Tab 1 TAB PO Q8H PRN HEADACHE #21 TAB Jerome Patrick MD R1 Oct 31, 2016 12:28
== END 2016-10-31 10:48 | disposition home or self-care (01) | DRG 690 ==
LOC: NEPE 09:43 → NEDA 11:51 → N07A 15:17
PROVIDERS: ADMIT Family Medicine; ATTEND Family Medicine
DX: N12 Tubulo-interstitial nephritis, not specified as acute or chronic (principal); E86.0 Dehydration; K21.9 Gastro-esophageal reflux disease without esophagitis; G43.909 Migraine, unspecified, not intractable, without status migrainosus; G47.00 Insomnia, unspecified; B96.20 Unspecified Escherichia coli [E. coli] as the cause of diseases classified elsewhere; F17.200 Nicotine dependence, unspecified, uncomplicated; Z88.0 Allergy status to penicillin; Z88.1 Allergy status to other antibiotic agents; Z88.5 Allergy status to narcotic agent
CPT/HCPCS: 71010; 76775; 80048; 80053; 81001; 83605; 83690; 84484; 84703; 85025; 85027; 87040; 87077; 87086; 87186; 87205; 87804; 93005; 96361; 96374; 96375; J0696; J1644; J1885; J2270; J2405; J7030

== ENCOUNTER 2017-04-03 18:44 | Emergency (ER) | payer MEDICAID ==
[~2017-04-03] VITALS: Ht 154.9 cm; Wt 60.0 kg
[~2017-04-03 18:44] MED LIST changes: -BACT800T5 PO; +BUTATAB6 PO; +CIPR500T2 PO; -FLUT1SPR9 EACH NARE; -NAPR500 PO
[2017-04-03 20:32] VITALS: BP 140/82; PULSE 89; RESP 20; O2SAT 97
[2017-04-03 20:33] VITALS: BP 140/82; PULSE 107; O2SAT 97
--- NOTE | 2017-04-03 20:34 | PD ---
HPI Chief Complaint: GI Complaint Time Seen by Provider: 20:34 Travel History International Travel<30 days: No Contact w/Intl Traveler<30days: No Traveled to known affect area: No History of Present Illness HPI 36 YO F presents to the ED for evaluation of 6 day history of dull, constant right sided headache, N/V, constant, throbbing left sided back pain, F/C. She endorses previous history of similar headaches. She denies dizziness, vision changes. She denies suprapubic pain, urinary urgency, dysuria, incontinence, abdominal pain, vaginal discharge or odor. She endorses NB loose stools today. She states these symptoms are similar to previous episode of "kidney infection." Currently menstruating. PFSH Past Medical History Hx Anticoagulant Therapy: No Cancer: No Cardiovascular Problems: No Chemotherapy: No Cerebrovascular Accident: No Diabetes: No Diminished Hearing: No Glaucoma: No Hepatitis: No Hiatal Hernia: No Hypertension: No Medical other: Yes (HX MIGRAINES) Respiratory: No Migraines: Yes Thyroid Disease: No Tetanus Vaccination: Unknown Influenza Vaccination: No ?: Not LMP: 03/31/17 : 4 Para: 2 Miscarriage: 1 : 0 Tubal Ligation: Yes Past Surgical History Abdominal Surgery: No Cardiac Surgery: No Ear Surgery: No Endocrine Surgery: No Eye Surgery: No Genitourinary Surgery: No Gynecologic Surgery: Yes (COLPOSCOPY) Neurologic Surgery: No Oral Surgery: Yes (WISDOM TEETH) Pacemaker: No Thoracic Surgery: No Other Surgery: Yes Social History Alcohol Use: Yes (OCCASIONAL) Tobacco Use: Yes (1 PPD) Substance Use: No Allergies-Medications (Allergen,Severity, Reaction): Coded Allergies: amoxicillin (Unverified Allergy, Severe, HIVES, 04/03/17) codeine (Unverified Allergy, Severe, HIVES, 04/03/17) penicillin G (Unverified Allergy, Severe, HIVES, 04/03/17) Reported Meds & Prescriptions Reported Meds & Active Scripts Active Ibuprofen 600 Mg Tab 600 Mg PO Q8H Cipro (Ciprofloxacin HCl) 500 Mg Tab 500 Mg PO BID 7 Days Review of Systems Except as stated in HPI: all other systems reviewed are Neg Physical Exam Narrative GENERAL: Well-nourished, well-developed ill-appearing white female in no acute distress.. SKIN: Focused skin assessment warm/dry. HEAD: Normocephalic. EYES: No scleral icterus. No injection or drainage. NECK: Supple, trachea midline. No JVD or lymphadenopathy. CARDIOVASCULAR: Regular rate and rhythm without murmurs, gallops, or rubs. RESPIRATORY: Breath sounds clear and equal bilaterally. No accessory muscle use. GASTROINTESTINAL: Abdomen soft, non-tender, nondistended. No suprapubic tenderness. Active bowel sounds. MUSCULOSKELETAL: No cyanosis, or edema. BACK: Nontender without obvious deformity. ++ Left-sided CVA tenderness. Data Data Last Documented VS Vital Signs Date Time Temp Pulse Resp B/P (MAP) Pulse Ox O2 Delivery O2 Flow Rate FiO2 04/03/17 22:51 98.2 04/03/17 21:48 93 95 Room Air 04/03/17 20:32 20 Orders Orders Urinalysis - C+S If Indicated (04/03/17 20:33) Ed Urine Pregnancytest Poc (04/03/17 20:33) Complete Blood Count With Diff (04/03/17 20:52) Comprehensive Metabolic Panel (04/03/17 20:52) Lactic Acid Sepsis Protocol (04/03/17 20:52) Blood Culture (04/03/17 20:52) Blood Glucose (04/03/17 20:52) Ecg Monitoring (04/03/17 20:52) Iv Access Insert/Monitor (04/03/17 20:52) Oximetry (04/03/17 20:52) Acetaminophen (Tylenol) (04/03/17 21:00) Sodium Chlor 0.9% 1000 Ml Inj (Ns 1000 M (04/03/17 20:52) Sodium Chlor 0.9% 1000 Ml Inj (Ns 1000 M (04/03/17 20:52) Ondansetron Inj (Zofran Inj) (04/03/17 21:00) Ketorolac Inj (Toradol Inj) (04/03/17 21:00) Urine Culture (04/03/17 20:50) Ciprofloxacin 400 Mg Premix (Cipro 400 M (04/03/17 22:30) Potassium Chloride (Kcl) (04/03/17 22:45) Labs Laboratory Tests Test 04/03/17 20:50 04/03/17 21:03 Urine Color YELLOW Urine Turbidity HAZY Urine pH 6.5 Urine Specific [place] 1.035 Urine Protein 300 mg/dL Urine Glucose (UA) NEG mg/dL Urine Ketones 40 mg/dL Urine Occult Blood SMALL Urine Nitrite NEG Urine Bilirubin NEG Urine Urobilinogen 2.0 MG/DL Urine Leukocyte Esterase NEG Urine RBC 8 /hpf Urine WBC 10 /hpf Urine Squamous Epithelial Cells 3 /hpf Urine Mucus MANY /lpf Microscopic Urinalysis Comment CULTURE INDICATED White Blood Count 12.4 TH/MM3 Red Blood Count 4.03 MIL/MM3 Hemoglobin 12.8 GM/DL Hematocrit 37.5 % Mean Corpuscular Volume 93.1 FL Mean Corpuscular Hemoglobin 31.8 PG Mean Corpuscular Hemoglobin Concent 34.2 % Red Cell Distribution Width 12.9 % Platelet Count 216 TH/MM3 Mean Platelet Volume 9.4 FL Neutrophils (%) (Auto) 85.7 % Lymphocytes (%) (Auto) 9.9 % Monocytes (%) (Auto) 3.9 % Eosinophils (%) (Auto) 0.0 % Basophils (%) (Auto) 0.5 % Neutrophils # (Auto) 10.6 TH/MM3 Lymphocytes # (Auto) 1.2 TH/MM3 Monocytes # (Auto) 0.5 TH/MM3 Eosinophils # (Auto) 0.0 TH/MM3 Basophils # (Auto) 0.1 TH/MM3 CBC Comment DIFF FINAL Differential Comment Blood Urea Nitrogen 8 MG/DL Creatinine 0.98 MG/DL Random Glucose 86 MG/DL Total Protein 7.6 GM/DL Albumin 3.2 GM/DL Calcium Level 9.1 MG/DL Alkaline Phosphatase 76 U/L Aspartate Amino Transf (AST/SGOT) 13 U/L Alanine Aminotransferase (ALT/SGPT) 15 U/L Total Bilirubin 0.4 MG/DL Sodium Level 136 MEQ/L Potassium Level 3.3 MEQ/L Chloride Level 104 MEQ/L Carbon Dioxide Level 20.1 MEQ/L Anion Gap 12 MEQ/L Estimat Glomerular Filtration Rate 64 ML/MIN Lactic Acid Level 0.9 mmol/L MDM Medical Decision Making Medical Screen Exam Complete: Yes Emergency Medical Condition: Yes Differential Diagnosis Cystitis versus pyelonephritis versus nephroureterolithiasis versus STI versus other Narrative Course 36 YO F presents to the ED for evaluation of 6 day history of dull, constant right sided headache, N/V, constant, throbbing left sided back pain, F/C. She endorses previous history of similar headaches. She denies dizziness, vision changes. She denies suprapubic pain, urinary urgency, dysuria, incontinence, abdominal pain, vaginal discharge or odor. She endorses NB loose stools today. She states these symptoms are similar to previous episode of "kidney infection." Currently menstruating. Temp 101.8, pulse 107 on presentation. Physical exam reveals an ill-appearing white female in no acute distress. There is positive left-sided CVA tenderness but the remaining exam is unremarkable. Patient was administered 2 L normal saline, 30 mg Toradol and 4 mg Zofran IV as well as 650 mg Tylenol by mouth. CBC: WBC 12.4 with a left shift. CMP BUN 8, creatinine 0.98. K 3.3. Lactic acid 0.9. UA: Hazy, small occult blood, 10 WBCs, many mucus. Culture pending. ED urine test: negative. The patient was administered 20 mEq potassium by mouth and 400 mg Cipro IV. On recheck she reports improvement of her symptoms. We discussed admission but at this point the patient refers outpatient treatment. She is prescribed 500 mg Cipro twice a day 7 days and 600 mg ibuprofen 3 times a day when necessary fever and pain. She is instructed to return to the ED should symptoms not improve or worsen over the next 2 days. She indicated understanding of the instructions and is agreeable to the care plan. She is stable and discharged home. Sepsis Criteria SIRS Criteria (2 or more): Heart rate over 90, WBC > 97909, < 4000 or > 10% bands Diagnosis Primary Impression: Pyelonephritis Referrals: Primary Care Physician Patient Instructions: General Instructions, Kidney Infection (ED) Additional Instructions: Rest, hydrate. Take all antibiotics as prescribed, even if your symptoms resolved. Alternate Tylenol and Motrin as directed on label, as needed for continued pain and fever. Follow-up with the primary care provider. Return to the ED for worsening symptoms or any urgent or emergent medical condition. Med/Other Pt SpecificInfo: Prescription(s) given Scripts Ibuprofen (Ibuprofen) 600 Mg Tab 600 MG PO Q8H, #15 TAB 0 Refills Prov: Amy Sterling MD 04/03/17 Ciprofloxacin (Cipro) 500 Mg Tab 500 MG PO BID for Infection for 7 Days, #14 TAB 0 Refills Prov: Amy Sterling MD 04/03/17 Disposition: 01 DISCHARGE HOME Condition: Stable Wendi Arreola Apr 03, 2017 20:34
[2017-04-03] MEDS ORDERED: SODIUM CHLOR 0.9% 1000 ML INJ 1,000 ML IV ONE (20:52)
[2017-04-03] MEDS ORDERED: SODIUM CHLOR 0.9% 1000 ML INJ 800 ML IV ONE (20:52)
[2017-04-03] MEDS ORDERED: ONDANSETRON HCL 4 MG/2 ML VIAL IV PUSH ONE (21:00)
[2017-04-03] MEDS ORDERED: KETOROLAC TROMETHAMINE 30 MG/ML (IVP) VIAL IV PUSH ONE (21:00)
[2017-04-03] MEDS ORDERED: ACETAMINOPHEN 325 MG TAB PO ONE (21:00)
[2017-04-03 21:30] LABS: BLOOD, URINE SMALL (NEG); COMMENT (UR) CULTURE INDICATED; CULTURE IF INDICATED CULTURE INDICATED; GLUCOSE,URINE NEG (NEG); KETONE, URINE 40 mg/dL (NEG); MUCUS URINE MANY /lpf (OCC); NITRITE,URINE NEG (NEG); PH, URINE 6.5 (5.0-8.5); SQUAMOUS EPITHELIAL CELL URINE 3 /hpf (0-5); URINE COLOR YELLOW (YELLW/STRAW)
[2017-04-03 21:33] LABS: AUTOMATED NEUTROPHIL # 10.6 TH/MM3 (1.8-7.7); BASOPHIL # 0.1 TH/MM3 (0-0.2); BASOPHIL % 0.5 % (0.0-2.0); HEMATOCRIT 37.5 % (35.0-46.0); HEMO FLAGS DIFF FINAL; LYMPH % 9.9 % (9.0-44.0); LYMPHOCYTE # 1.2 TH/MM3 (1.0-4.8); MEAN CELL VOLUME 93.1 FL (80.0-100.0); MEAN CORPUSCULAR HEMOGLOBIN 31.8 PG (27.0-34.0); MEAN CORPUSCULAR HGB CONC 34.2 % (32.0-36.0); MONO % 3.9 % (0.0-8.0); NEUT % 85.7 % (16.0-70.0); PLATELET COUNT 216 TH/MM3 (150-450); RED BLOOD COUNT 4.03 MIL/MM3 (4.00-5.30); RED CELL DISTRIBUTION WIDTH 12.9 % (11.6-17.2); WHITE BLOOD COUNT 12.4 TH/MM3 (4.0-11.0)
[2017-04-03 21:48] VITALS: BP 123/63; PULSE 93; O2SAT 95
[2017-04-03 21:50] VITALS: TEMP 101.8
[2017-04-03 21:50] LABS: ANION GAP 12 MEQ/L (5-15); AST (GOT) 13 U/L (15-37); BICARBONATE 20.1 MEQ/L (21.0-32.0); BLOOD UREA NITROGEN 8 MG/DL (7-18); CHLORIDE 104 MEQ/L (98-107); GLOMERULAR FILTRATION RATE 64 ML/MIN (>89); POTASSIUM 3.3 MEQ/L (3.5-5.1); SODIUM (NA) 136 MEQ/L (136-145)
[2017-04-03 21:54] LABS: ALKALINE PHOSPHATASE 76 U/L (45-117); ALT (GPT) 15 U/L (10-53); TOTAL BILIRUBIN ADULT 0.4 MG/DL (0.2-1.0)
[2017-04-03 22:17] VITALS: TEMP 99.9
[2017-04-03] MEDS ORDERED: CIPROFLOXACIN 400 MG PREMIX 200 ML IV ONE (22:30)
[2017-04-03] MEDS ORDERED: POTASSIUM CHLORIDE 20 MEQ CONTROLLED RELEASE TAB PO ONE (22:45)
[2017-04-03] MEDS ORDERED: IBUP-232 PO (22:50)
[2017-04-03] MEDS ORDERED: CIPR-9 PO (22:50)
[2017-04-03 22:51] VITALS: TEMP 98.2
== END 2017-04-03 23:40 | disposition home or self-care (01) ==
LOC: NEPC 18:44
DX: N10 Acute pyelonephritis (principal); R11.2 Nausea with vomiting, unspecified; R51 Headache
CPT/HCPCS: 80053; 81001; 83605; 84703; 85025; 87040; 87086; 96361; 96365; 96375; 99284; J0744; J1885; J2405; J7030

== ENCOUNTER 2017-07-27 16:18 | Emergency (ER) | payer MEDICAID ==
[~2017-07-27] VITALS: Ht 154.9 cm; Wt 56.5 kg
[~2017-07-27 16:18] MED LIST changes: -BUTATAB6 PO; +CIPR-9 PO; -CIPR500T2 PO; +IBUP-232 PO
[2017-07-27 16:19] VITALS: BP 124/67; PULSE 79; RESP 16; TEMP 98.1; O2SAT 98
--- NOTE | 2017-07-27 18:03 | PD ---
HPI Chief Complaint: Cold / Flu Symptoms Time Seen by Provider: 16:26 Travel History International Travel<30 days: No Contact w/Intl Traveler<30days: No Traveled to known affect area: No History of Present Illness HPI Patient is a 36-year-old female presenting to the emergency department for evaluation of body aches, fever of 102.0 which was 2 days ago, she states she last vomited yesterday, her cough is nonproductive and dry. She has been taking mucinex, dayquil and nyquil. She states she has been sick since Sunday. She denies any shortness of breath, chest pain, headache, diarrhea, constipation , abdominal pain. She states that her work is requiring her to get a note in order to return. Symptoms started gradually, they have improved since onset. She was experiencing some relief with [id number]-ibnwnjh therapies. PFSH Past Medical History Respiratory: No Migraines: Yes Thyroid Disease: No : 4 Para: 2 Miscarriage: 1 : 0 Tubal Ligation: Yes Past Surgical History Gynecologic Surgery: Yes (COLPOSCOPY) Oral Surgery: Yes (WISDOM TEETH) Other Surgery: Yes Social History Alcohol Use: Yes (OCCASIONAL) Tobacco Use: Yes (1 PPD) Substance Use: No Allergies-Medications (Allergen,Severity, Reaction): Coded Allergies: amoxicillin (Unverified Allergy, Severe, HIVES, 04/03/17) codeine (Unverified Allergy, Severe, HIVES, 04/03/17) penicillin G (Unverified Allergy, Severe, HIVES, 04/03/17) Reported Meds & Prescriptions Reported Meds & Active Scripts Active Ibuprofen 600 Mg Tab 600 Mg PO Q8H Cipro (Ciprofloxacin HCl) 500 Mg Tab 500 Mg PO BID 7 Days Review of Systems Except as stated in HPI: all other systems reviewed are Neg General / Constitutional: Positive: Fever, Chills Eyes: No: Blurred Vision HENT: Positive: Congestion, No: Headaches Cardiovascular: No: Chest Pain or Discomfort Respiratory: Positive: Cough, No: Shortness of Breath Gastrointestinal: No: Nausea, Vomiting (resolved), Abdominal Pain Genitourinary: No: Dysuria Musculoskeletal: Positive: Myalgias Physical Exam Narrative GENERAL: Well-developed, well-nourished, well-appearing female. Presenting in no acute distress. SKIN: Warm and dry. HEAD: Normocephalic. EYES: No scleral icterus. No injection or drainage. NECK: No obvious deformities CARDIOVASCULAR: Regular rate. RESPIRATORY: No accessory muscle use, no increased work of breathing, no nasal flaring. MUSCULOSKELETAL: No cyanosis, or edema. Data Data Last Documented VS Vital Signs Date Time Temp Pulse Resp B/P (MAP) Pulse Ox O2 Delivery O2 Flow Rate FiO2 07/27/17 16:19 98.1 79 16 124/67 (86) 98 Room Air MDM Medical Decision Making Medical Screen Exam Complete: Yes Emergency Medical Condition: Yes Interpretation(s) Vital Signs Date Time Temp Pulse Resp B/P (MAP) Pulse Ox O2 Delivery O2 Flow Rate FiO2 07/27/17 16:19 98.1 79 16 124/67 (86) 98 Room Air Differential Diagnosis Viral URI versus bronchitis versus pneumonia versus other Narrative Course Patient is a 36-year-old female presenting with 5 days of cold and flu symptoms. Patient's vital signs are stable, she is afebrile. Patient was seen and evaluated in triage, she is currently awaiting bed placement. Patient Promise Larson has decided to leave the hospital against medical advice. This patient has the capacity to refuse care and understands the risks of leaving, including permanent disability and/or , and has had an opportunity to ask questions about her condition. The patient has been informed that she may return for care at any time, and follow up has been arranged/ advised. Diagnosis Primary Impression: Left against medical advice Uzma Navarrete Jul 27, 2017 18:03
== END 2017-07-27 17:55 | disposition left against medical advice (07) ==
LOC: NED 16:18
DX: R05 Cough (principal); R50.9 Fever, unspecified; F17.200 Nicotine dependence, unspecified, uncomplicated
CPT/HCPCS: 99281